=== PATIENT | male | born 1990 | race Caucasian/White ===

== ENCOUNTER 2024-03-21 12:43 | Emergency (ER) | payer OTHER ==
[2024-03-21] MEDS: Sodium Chloride 0.9% 1,000 ML IV SCH ×2 (13:42→14:33)
[2024-03-21] MEDS: Ondansetron 4 MG/2 ML SDV IVPUSH ONE (13:44)
[2024-03-21] MEDS: Ketorolac 30 MG/ML SDV IVPUSH ONE (13:45)
[2024-03-21 13:48] LABS: BILIRUBIN,URINE NEGATIVE (NEGATIVE); GLUCOSE,URINE NORMAL (NORMAL); KETONES,URINE NEGATIVE (NEGATIVE); LEUKOCYTE ESTERASE,URINE NEGATIVE (NEGATIVE); NITRITE,URINE NEGATIVE (NEGATIVE); OCCULT BLOOD,URINE MODERATE (NEGATIVE); PROTEIN,URINE 500 mg/dL (NEGATIVE); UROBILINOGEN,URINE NORMAL (NEGATIVE)
[2024-03-21 13:48] LABS: HEMATOCRIT 42.3 % (38.3-50.1); HEMOGLOBIN 14.6 g/dL (12.9-17.7); MEAN CORPUSCULAR HEMOGLOBIN 30.5 pg (27.0-33.3); MEAN CORPUSCULAR HGB CONC 34.4 g/dL (28.7-35.3); MEAN CORPUSCULAR VOLUME 88.7 fL (80.8-98.7); MEAN PLATELET VOLUME 8.7 fL (6.7-11.0); PLATELET COUNT,PLT 328 x10(3)uL (117-477); RED BLOOD CELL COUNT 4.77 x10(6)uL (3.90-5.90); WHITE BLOOD CELL COUNT,WBC 21.2 x10-3/uL (3.2-10.1)
[2024-03-21] MEDS: Morphine 4 MG/ML VIAL IVPUSH ONE (13:48)
[2024-03-21 13:50] LABS: BLOOD UREA NITROGEN,BUN 19 mg/dL (7-18); BUN/CREATININE RATIO 11.2 (9-20); CALCIUM 9.3 mg/dL (8.6-10.2); CARBON DIOXIDE,CO2 28 mmol/L (21-32); CHLORIDE,CL 103 mmol/L (100-110); CREATININE 1.7 mg/dL (0.70-1.30); ESTIMATED GFR 56 mL/min (>60); GLUCOSE RANDOM 113 mg/dL (80-116); POTASSIUM,K 3.6 mmol/L (3.5-5.3); SODIUM,NA 142 mmol/L (135-145)
[2024-03-21 13:52] LABS: COLOR,URINE YELLOW (YELLOW)
[2024-03-21 13:53] LABS: APPEARANCE,URINE CLEAR (CLEAR); BACTERIA,URINE FEW (NS); RBC,URINE 0-5 (0-5); SQUAMOUS EPITHELIAL CELLS,UR FEW (NS,R,O); WBC,URINE 0-5 (0-5)
[2024-03-21 13:55] LABS: ALANINE AMINOTRANSFERASE,ALT 40 U/L (12-36); ALBUMIN 3.4 g/dL (3.5-5.2); ALKALINE PHOSPHATASE 53 IU/L (56-112); ASPARTATE AMNIOTRANSFERASE,AST 13 IU/L (5-25); BILIRUBIN TOTAL 0.3 mg/dL (0.1-1.3); PROTEIN TOTAL,TP 6.7 g/dL (6.0-8.0)
[2024-03-21] MEDS: diphenhydrAMINE 50 MG/ML SDV IVPUSH ONE (14:05)
[2024-03-21 14:07] LABS: BAND PERCENT MAN 4 % (0-6); LYMPHOCYTES PERCENT MAN 6 % (13-37); MONOCYTES PERCENT MAN 11 % (4-12); SEG NEUTROPHILS PERCENT MAN 79 % (46-82)
[2024-03-21] MEDS: Ertapenem 1 GM in Sodium Chloride 0.9% 50 ML IV STA (14:33)
[2024-03-21] MEDS: Iopamidol 755 Mg/ML 100 ML Bottle IV SCH (15:17)
[2024-03-21] MEDS: metroNIDAZOLE/Normal Saline 500 MG in Premix Bag 1 BAG IV ONE (16:15)
[2024-03-21] MEDS: fentaNYL 100 MCG/2 ML SDV IVPUSH STA (16:58)
== END 2024-03-21 17:18 ==
LOC: FB.ED 12:43 → EDBD 12:43 → FB.ED 17:18
DX: A41.9 Sepsis, unspecified organism (principal); K35.80 Unspecified acute appendicitis; F17.210 Nicotine dependence, cigarettes, uncomplicated
CPT/HCPCS: 36415; 74177; 80053; 81001; 83605; 83690; 85025; 86140; 87040; 96361; 96365; 96367; 96375; 99285; J1200; J1335; J1836; J1885; J2270; J2405; J3010; J3490; J7030; Q9967